=== PATIENT | female | born 1980 | race Caucasian/White ===

== ENCOUNTER 2024-09-21 20:05 | Emergency (ER) | payer BC, OTHER ==
[2024-09-21 20:14] VITALS: RESP 18; BMI 30.1
[2024-09-21] MEDS ORDERED: MORPHINE SULFATE 2 MG/ML SYRINGE ONE (21:00)
[2024-09-21] MEDS: SODIUM CHLORIDE 1,000 ML IV SCH (21:24)
[2024-09-21] MEDS: morphine CARPU-JECT 2 MG/1 ML DISP.SYRIN IVPUSH ONE (21:25)
[2024-09-21 21:34] LABS: ABSOLUTE IMMATURE GRANULOCYTES 0.04 x10^3/uL (0.0-0.031); BASOPHILS # 0.08 x10^3/uL (0.01-0.08); EOSINOPHIL % 1.3 % (0.7-5.8); EOSINOPHILS # 0.12 x10^3/uL (0.04-0.36); HEMATOCRIT 26.2 % (34.1-44.9); HEMOGLOBIN 6.7 g/dL (11.2-15.7); MCHC 25.6 g/dl (32.2-35.5); MONOCYTE # 0.61 x10^3/uL (0.24-0.86); MONOCYTE % 6.4 % (4.7-12.5); PLATELET COUNT 448 x10^3/uL (182-369); RDW 20.9 % (12.2-17.1)
[2024-09-21 21:51] LABS: POTASSIUM 4.6 mmol/L (3.5-5.1)
[2024-09-21 21:52] LABS: ALBUMIN 3.4 g/dl (3.4-5.0); BLOOD UREA NITROGEN 11.6 mg/dL (7-18)
[2024-09-21 21:56] LABS: CREATININE 0.6 mg/dL (0.55-1.3)
[2024-09-21 21:58] LABS: BILIRUBIN,TOTAL 0.3 mg/dL (0.2-1)
[2024-09-21 23:04] LABS: PH,URINE 6.5 (5.0-8.0); URINE APPEARANCE CLEAR; URINE BILIRUBIN NEGATIVE (NEGATIVE); URINE COLOR YELLOW; URINE GLUCOSE (UA) NEGATIVE (NEGATIVE); URINE KETONE NEGATIVE (NEGATIVE); URINE LEUK ESTERASE NEGATIVE (NEGATIVE); URINE NITRITE NEGATIVE (NEGATIVE); URINE PROTEIN NEGATIVE (NEGATIVE); URINE UROBILINOGEN 0.2 mg/dL (0.2-1.0)
[2024-09-21 23:07] LABS: HCG,QUALITATIVE URINE Negative
[2024-09-22] MEDS ORDERED: morphine CARPU-JECT 8 MG/1 ML DISP.SYRIN IVPUSH ONE (00:43)
[2024-09-22] MEDS ORDERED: FAMOTIDINE 20 MG/50 ML IVPB 20 MG/50 ML MG IVPB ONE (00:54)
[2024-09-22 01:19] VITALS: TEMP 98.8
[2024-09-22] MEDS: MAG HYDROX/AL HYDROX/SIMETH -MYLANTA- ORAL SUSPENSION PO ONE (01:31)
[2024-09-22] MEDS: KETOROLAC TROMETHAMINE 15 MG/ML VIAL IVPUSH ONE (01:32)
[2024-09-22] MEDS ORDERED: MAG HYDROX/AL HYDROX/SIMETH 30 ML UNIT-DOSE CUP ONE (03:09)
[2024-09-22] MEDS ORDERED: ACETAMINOPHEN 325 MG TABLET (FP) ONE (04:00)
[2024-09-22] MEDS ORDERED: KETOROLAC TROMETHAMINE 15 MG/ML VIAL ONE (04:01)
[2024-09-22 04:57] VITALS: BP 110/69; PULSE 78
== END 2024-09-22 04:45 | disposition home or self-care (01) ==
LOC: JER 20:05
PROC: 3E033NZ Introduction of Analgesics, Hypnotics, Sedatives into Peripheral Vein, Percutaneous Approach (ICD-10-PCS; principal; 2024-09-21)
DX: R10.12 Left upper quadrant pain (principal); R11.0 Nausea; R14.3 Flatulence; D64.9 Anemia, unspecified; D25.9 Leiomyoma of uterus, unspecified
CPT/HCPCS: 36415; 36430; 74177-TC; 80053; 81003; 83690; 84703; 85025; 86850; 86900; 86901; 86922; 93005; 93010; 99285-25; P9058; Q9967